=== PATIENT | male | born 1990 | race American Indian/Alaskan Native ===

== ENCOUNTER 2016-03-27 14:56 | Emergency (ER) | payer SELFPAY ==
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
[2016-03-27 16:21] VITALS: BP 119/73
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
== END 2016-03-27 16:20 | disposition home or self-care (01) ==
LOC: ED 14:56
DX: S01.90XA Unspecified open wound of unspecified part of head, initial encounter (principal); Z87.891 Personal history of nicotine dependence; W34.00XA Accidental discharge from unspecified firearms or gun, initial encounter; Y93.9 Activity, unspecified; Y92.9 Unspecified place or not applicable; Y99.9 Unspecified external cause status
CPT/HCPCS: 70450